=== PATIENT | male | born 1975 | race Caucasian/White ===

== ENCOUNTER 2020-03-06 21:35 | Inpatient (IN) | payer MEDICAID, OTHER ==
[~2020-03-06] VITALS: Ht 182.9 cm; Wt 71.8 kg
--- NOTE | 2020-03-06 21:35 | NUR ---
pt BIB [facility] from [facility]f C/O rash ans wounds to bilat forearms x2 days. pt has been scratching his arms and now has purulent drainage to both arms. per report, pt was very tachycadic [employer] and recieved a fluid bolus en route. pt reports that he was recently treated for a body rash in the [facility] pt A&Ox4. deputy of counter intelligence x2 present and pt in [facility] wrist restraints and leg restraints no resp. distress. denies any recent ill contacts. pt reports that he is in isolation in custody
--- NOTE | 2020-03-06 22:24 | NUR ---
lab at bedside to draw
[2020-03-06] MEDS ORDERED: SODIUM CHLORIDE FLUSH 10ML SYR IVF ONE (23:00)
[2020-03-06] MEDS ORDERED: CLINDAMYCIN PMX 600MG/50ML 50 ML IV ONE (23:00)
[2020-03-06] MEDS ORDERED: LORazepam 2 MG/ML, 1ML IVPush ONE (23:00)
[2020-03-06] MEDS ORDERED: SODIUM CHLORIDE 0.9% 1,000ML IVBOLUS ONE (23:00)
[2020-03-06 23:01] LABS: MEAN CORPUSCULAR HGB CONC 32.7 g/dL (33.2-36.2); MEAN PLATELET VOLUME 7.1 fL (7.4-10.4); PLATELET COUNT 471 x10^3/uL (130-400); RED BLOOD COUNT 2.08 x10^6/uL (4.38-5.82); RED CELL DISTRIBUTION WIDTH 16.5 % (9.4-14.8)
[2020-03-06 23:03] LABS: ALANINE AMINOTRANSFERASE 60 U/L (12-78); ALBUMIN 2.4 g/dL (3.4-5.0); ANION GAP 7 mmol/L (5-15); CALCIUM 8.5 mg/dL (8.5-10.1); CHLORIDE 104 mmol/L (98-107); CREATININE 1.46 mg/dL (0.7-1.3)
[2020-03-06] MEDS ORDERED: PANTOPRAZOLE 80 MG in SODIUM CHLORIDE 0.9% 100 ML IV SCH (23:04)
[2020-03-06 23:06] LABS: ALKALINE PHOSPHATASE 134 U/L (45-117); BILIRUBIN,TOTAL 0.6 mg/dL (0.2-1.0); TOTAL PROTEIN 6.8 g/dL (6.4-8.2)
[2020-03-06 23:27] LABS: BASOPHILS # (AUTO) 0.05 x10^3/uL (0-0.1); BASOPHILS % (AUTO) 0 % (0-1); EOSINOPHILS % (AUTO) 0 % (1-7); LYMPHOCYTES # (AUTO) 1.35 x10^3/uL (1-3.4); LYMPHOCYTES % (AUTO) 9 % (22-44); MD SCAN; MONOCYTES # (AUTO) 1.51 x10^3/uL (0.2-0.8); MONOCYTES % (AUTO) 10 % (2-9); NEUTROPHILS # (AUTO) 12.59 x10^3/uL (1.8-6.8); NEUTROPHILS % (AUTO) 81 % (42-75)
[2020-03-06] MEDS ORDERED: PANTOPRAZOLE 40 MG IV IVPush ONE (23:30)
[2020-03-06] MEDS ORDERED: CLINDAMYCIN PMX 600MG/50ML 50 ML ONE (23:40)
--- NOTE | 2020-03-06 23:42 | NUR ---
THIS TECH ASSISTED WITH RECTAL EXAM
[2020-03-06 23:50] LABS: INTERNATIONAL NORMALIZED RATIO 1.15 (0.93-1.1); PROTHROMBIN TIME 12.2 Seconds (9.6-11.5)
[2020-03-06 23:55] LABS: % IRON SATURATION 8 % (20-55); IRON LEVEL 15 mcg/dL (65-175); TOTAL IRON BINDING CAPACITY 192 mcg/dL (250-450)
[2020-03-07] VITALS (15 sets, daily range): BP systolic 100–130; BP diastolic 56–72
--- NOTE | 2020-03-07 00:05 | NUR ---
pt re-positioned and reminded to hold carms at sides for infusions
--- NOTE | 2020-03-07 00:33 | NUR ---
pt re-positioned by deputies to straighten arms to allow for increased flow of IV fluids and medications
--- NOTE | 2020-03-07 00:33 | NUR ---
tech at bedside for EKG
[2020-03-07] MEDS ORDERED: LORazepam 2 MG/ML, 1ML ONE (01:22)
[2020-03-07] MEDS ORDERED: PANTOPRAZOLE 40 MG IV ONE (01:23)
--- NOTE | 2020-03-07 02:02 | NUR ---
report called to Griselda LARSON
--- NOTE | 2020-03-07 02:10 | NUR ---
late note for 0210: blood consent signed by pt
[2020-03-07] MEDS ORDERED: LACTATED RINGERS 1,000 ML IV SCH (05:30)
[2020-03-07] MEDS ORDERED: OXYcodone IR 5MG TABLET PO PRN (05:30)
[2020-03-07] MEDS ORDERED: TRAZODONE 50MG TABLET PO PRN (05:30)
[2020-03-07] MEDS ORDERED: ONDANSETRON 2MG/ML, 2ML IVPush PRN (05:30)
[2020-03-07] MEDS ORDERED: PANTOPRAZOLE 80 MG in SODIUM CHLORIDE 0.9% 100 ML IV SCH (05:30)
[2020-03-07] MEDS ORDERED: THIAMINE 200 MG in SODIUM CHLORIDE 0.9% 50 ML IV ONE (06:00)
[2020-03-07] MEDS: CLINDAMYCIN PMX 600MG/50ML 50 ML IV SCH ×4 (06:31→23:12)
[2020-03-07 08:48] LABS: CALCIUM 8.8 mg/dL (8.5-10.1); CREATININE 1.25 mg/dL (0.7-1.3)
[2020-03-07 09:10] LABS: ANION GAP 7 mmol/L (5-15); CHLORIDE 112 mmol/L (98-107)
[2020-03-07] MEDS: PANTOPRAZOLE 40 MG IV IVPush SCH ×2 (11:51→23:11)
[2020-03-07] MEDS: IRON SUCROSE COMPLEX 100MG/5ML IV SCH (11:51)
[2020-03-07] MEDS ORDERED: SODIUM CHLORIDE 0.9% 1,000 ML IV SCH (12:00)
[2020-03-07] MEDS ORDERED: QUET100T4 PO (13:19)
[2020-03-07] MEDS ORDERED: ACET325C6 PO (13:19)
[2020-03-07] MEDS ORDERED: QUET400T4 PO (13:19)
[2020-03-07] MEDS ORDERED: CHOL10003 PO (13:19)
[2020-03-07] MEDS ORDERED: OMEP20CA20 PO (13:19)
[2020-03-07] MEDS ORDERED: LITH450T PO (13:19)
[2020-03-07] MEDS: MUPIROCIN OINT 2%, 1 GM APPL. TP SCH ×2 (16:35→21:32)
[2020-03-07] MEDS ORDERED: QUETIAPINE 200 MG TABLET PO SCH (21:00)
[2020-03-07] MEDS: LITHIUM CARBONATE 150 MG CAPSULE PO SCH (21:31)
[2020-03-07] MEDS: ACETAMINOPHEN 325 MG TABLET PO PRN (21:47)
[2020-03-08 00:09] VITALS: BP 96/54
[2020-03-08 04:57] LABS: ANION GAP 7 mmol/L (5-15); CALCIUM 9.6 mg/dL (8.5-10.1); CHLORIDE 113 mmol/L (98-107); CREATININE 1.29 mg/dL (0.7-1.3)
[2020-03-08 05:12] LABS: BASOPHILS # (AUTO) 0.06 x10^3/uL (0-0.1); BASOPHILS % (AUTO) 1 % (0-1); EOSINOPHILS % (AUTO) 0 % (1-7); LYMPHOCYTES # (AUTO) 1.62 x10^3/uL (1-3.4); LYMPHOCYTES % (AUTO) 16 % (22-44); MD NO; MEAN CORPUSCULAR HEMOGLOBIN 29.5 pg (27.5-34.5); MEAN PLATELET VOLUME 7.2 fL (7.4-10.4); MONOCYTES % (AUTO) 13 % (2-9); NEUTROPHILS % (AUTO) 71 % (42-75); PLATELET COUNT 469 x10^3/uL (130-400)
[2020-03-08] MEDS: CLINDAMYCIN PMX 600MG/50ML 50 ML IV SCH (05:19)
[2020-03-08] MEDS: QUETIAPINE 100MG TABLET PO SCH (05:20)
[2020-03-08] MEDS: ACETAMINOPHEN 325 MG TABLET PO PRN ×3 (05:25→16:47)
[2020-03-08] MEDS ORDERED: VANCOMYCIN PER PHARMACY MC PRN (07:30)
[2020-03-08 07:41] VITALS: BP 124/72
[2020-03-08] MEDS ORDERED: PHARMACOKINETIC MONITORING MC PRN (08:00)
[2020-03-08] MEDS ORDERED: VANCOMYCIN 2,000 MG in SODIUM CHLORIDE 0.9% 500 ML IV ONE (08:00)
[2020-03-08] MEDS: CHOLECALCIFEROL 1,000 UNIT TABLET PO SCH (08:45)
[2020-03-08] MEDS: IRON SUCROSE COMPLEX 100MG/5ML IV SCH (08:46)
[2020-03-08] MEDS: MUPIROCIN OINT 2%, 1 GM APPL. TP SCH ×3 (08:46→20:40)
[2020-03-08] MEDS: LITHIUM CARBONATE 150 MG CAPSULE PO SCH ×3 (08:46→20:39)
[2020-03-08] MEDS: PANTOPRAZOLE 40 MG IV IVPush SCH ×2 (12:11→23:42)
[2020-03-08 13:03] VITALS: BP 137/81
[2020-03-08 19:57] VITALS: BP 130/78
[2020-03-08] MEDS: QUETIAPINE 200 MG TABLET PO SCH (20:39)
[2020-03-08] MEDS: VANCOMYCIN 1,600 MG in SODIUM CHLORIDE 0.9% 250 ML IV SCH (20:39)
[2020-03-09] VITALS (8 sets, daily range): BP systolic 80–135; BP diastolic 49–84
[2020-03-09] MEDS: ACETAMINOPHEN 325 MG TABLET PO PRN ×4 (01:45→20:24)
[2020-03-09] MEDS: QUETIAPINE 100MG TABLET PO SCH (05:47)
[2020-03-09] MEDS ORDERED: LACTATED RINGERS 1,000 ML IVBOLUS ONE (07:00)
[2020-03-09 07:40] LABS: FREE T4 (FREE THYROXINE) > 8.00 ng/dL (0.76-1.46)
[2020-03-09 09:03] LABS: MEAN CORPUSCULAR HEMOGLOBIN 29.3 pg (27.5-34.5); MEAN CORPUSCULAR HGB CONC 32.1 g/dL (33.2-36.2); MEAN PLATELET VOLUME 7.3 fL (7.4-10.4); PLATELET COUNT 453 x10^3/uL (130-400); RED BLOOD COUNT 2.77 x10^6/uL (4.38-5.82)
[2020-03-09 09:09] LABS: ALANINE AMINOTRANSFERASE 78 U/L (12-78); ALBUMIN 2.2 g/dL (3.4-5.0); ANION GAP 8 mmol/L (5-15); CALCIUM 8.9 mg/dL (8.5-10.1); CHLORIDE 109 mmol/L (98-107); CREATININE 1.16 mg/dL (0.7-1.3)
[2020-03-09 09:15] LABS: ALKALINE PHOSPHATASE 138 U/L (45-117); BILIRUBIN,TOTAL 1.1 mg/dL (0.2-1.0); TOTAL PROTEIN 6.7 g/dL (6.4-8.2)
[2020-03-09] MEDS: CHOLECALCIFEROL 1,000 UNIT TABLET PO SCH (09:16)
[2020-03-09] MEDS: IRON SUCROSE COMPLEX 100MG/5ML IV SCH (09:16)
[2020-03-09] MEDS: VANCOMYCIN 1,600 MG in SODIUM CHLORIDE 0.9% 250 ML IV SCH ×2 (09:16→20:12)
[2020-03-09] MEDS: MUPIROCIN OINT 2%, 1 GM APPL. TP SCH ×3 (09:22→21:00)
[2020-03-09 09:34] LABS: BASOPHILS # (AUTO) 0.17 x10^3/uL (0-0.1); BASOPHILS % (AUTO) 1 % (0-1); EOSINOPHILS % (AUTO) 0 % (1-7); LYMPHOCYTES # (AUTO) 2.03 x10^3/uL (1-3.4); LYMPHOCYTES % (AUTO) 12 % (22-44); MD SCAN; MONOCYTES # (AUTO) 1.56 x10^3/uL (0.2-0.8); MONOCYTES % (AUTO) 9 % (2-9); NEUTROPHILS # (AUTO) 12.79 x10^3/uL (1.8-6.8); NEUTROPHILS % (AUTO) 77 % (42-75)
[2020-03-09 09:59] LABS: HCT (SEDRATE) 25.2 % (39.2-51.8)
[2020-03-09] MEDS: PANTOPRAZOLE 40 MG IV IVPush SCH (11:47)
[2020-03-09] MEDS: LITHIUM CARBONATE 150 MG CAPSULE PO SCH ×3 (11:47→20:17)
[2020-03-09] MEDS: ENOXAPARIN 40 MG/0.4 ML SQ SCH (13:36)
[2020-03-09] MEDS: ASCORBIC ACID 500 MG TABLET PO SCH ×2 (13:36→20:17)
[2020-03-09] MEDS: CHOLECALCIFEROL 5,000u TAB PO SCH (13:37)
[2020-03-09] MEDS: METOPROLOL TARTRATE 25 MG TAB PO SCH ×2 (13:37→20:18)
[2020-03-09] MEDS: AZITHROMYCIN 500 MG TABLET PO SCH (13:38)
[2020-03-09] MEDS: ZINC SULFATE 220 MG CAPSULE PO SCH (13:38)
[2020-03-09] MEDS: CEFTRIAXONE PMX 1GM/50ML 50 ML IV SCH (13:38)
[2020-03-09] MEDS: THIAMINE 100MG TABLET PO SCH ×2 (13:56→20:17)
[2020-03-09] MEDS: QUETIAPINE 200 MG TABLET PO SCH (20:24)
[2020-03-10 00:15] VITALS: BP 98/60
[2020-03-10] MEDS: PANTOPRAZOLE 40 MG IV IVPush SCH ×3 (00:22→23:59)
[2020-03-10] MEDS ORDERED: LACTATED RINGERS 1,000 ML IVBOLUS ONE (03:00)
[2020-03-10] MEDS ORDERED: METOPROLOL TARTRATE 25 MG TAB PO ONE ×2 (03:05→15:00)
[2020-03-10 06:25] LABS: HCT (SEDRATE) 25.7 % (39.2-51.8)
[2020-03-10 06:30] LABS: CHLORIDE 111 mmol/L (98-107)
[2020-03-10 06:37] LABS: MEAN CORPUSCULAR HGB CONC 32.8 g/dL (33.2-36.2); MEAN PLATELET VOLUME 7.3 fL (7.4-10.4); PLATELET COUNT 410 x10^3/uL (130-400); RED BLOOD COUNT 2.85 x10^6/uL (4.38-5.82)
[2020-03-10] MEDS: QUETIAPINE 100MG TABLET PO SCH (06:39)
[2020-03-10 07:03] LABS: ALANINE AMINOTRANSFERASE 82 U/L (12-78); ALBUMIN 2.2 g/dL (3.4-5.0); ALKALINE PHOSPHATASE 147 U/L (45-117); ANION GAP 8 mmol/L (5-15); CALCIUM 9.4 mg/dL (8.5-10.1); CREATININE 1.26 mg/dL (0.7-1.3); TOTAL PROTEIN 7.1 g/dL (6.4-8.2)
[2020-03-10 07:13] LABS: BASOPHILS # (AUTO) 0.06 x10^3/uL (0-0.1); BASOPHILS % (AUTO) 0 % (0-1); EOSINOPHILS % (AUTO) 0 % (1-7); LYMPHOCYTES # (AUTO) 1.71 x10^3/uL (1-3.4); LYMPHOCYTES % (AUTO) 11 % (22-44); MD SCAN; MONOCYTES # (AUTO) 1.54 x10^3/uL (0.2-0.8); MONOCYTES % (AUTO) 10 % (2-9); NEUTROPHILS # (AUTO) 12.48 x10^3/uL (1.8-6.8); NEUTROPHILS % (AUTO) 79 % (42-75)
[2020-03-10 07:38] VITALS: BP 108/69
[2020-03-10] MEDS: VANCOMYCIN 1,600 MG in SODIUM CHLORIDE 0.9% 250 ML IV SCH ×2 (08:06→20:37)
[2020-03-10] MEDS: ACETAMINOPHEN 325 MG TABLET PO PRN ×2 (08:12→20:37)
[2020-03-10] MEDS ORDERED: METOPROLOL SUCCINATE 25 MG TAB.ER.24H PO SCH (09:00)
[2020-03-10] MEDS: CHOLECALCIFEROL 5,000u TAB PO SCH (09:45)
[2020-03-10] MEDS: THIAMINE 100MG TABLET PO SCH ×2 (09:45→20:37)
[2020-03-10] MEDS: ASCORBIC ACID 500 MG TABLET PO SCH (09:45)
[2020-03-10] MEDS: LITHIUM CARBONATE 150 MG CAPSULE PO SCH ×3 (09:46→20:37)
[2020-03-10] MEDS: ZINC SULFATE 220 MG CAPSULE PO SCH (09:46)
[2020-03-10] MEDS: MUPIROCIN OINT 2%, 1 GM APPL. TP SCH ×3 (09:47→20:38)
[2020-03-10 09:48] VITALS: BP 113/68
[2020-03-10] MEDS: AZITHROMYCIN 500 MG TABLET PO SCH (11:01)
[2020-03-10] MEDS: IRON SUCROSE COMPLEX 100MG/5ML IV SCH (11:01)
[2020-03-10 12:26] VITALS: BP 117/68
[2020-03-10] MEDS: ENOXAPARIN 40 MG/0.4 ML SQ SCH (12:36)
[2020-03-10] MEDS: CEFTRIAXONE PMX 1GM/50ML 50 ML IV SCH (12:36)
[2020-03-10] MEDS: ASCORBATE SODIUM 3,000 MG in SODIUM CHLORIDE 0.9% 250 ML IVPB SCH ×2 (17:25→23:59)
[2020-03-10 19:29] VITALS: BP 147/89
[2020-03-10] MEDS: QUETIAPINE 200 MG TABLET PO SCH (20:37)
[2020-03-10] MEDS: METOPROLOL SUCCINATE 25 MG TAB.ER.24H PO SCH (20:38)
[2020-03-11 00:45] VITALS: BP 108/69
[2020-03-11 01:08] LABS: OCCULT BLOOD NEGATIVE (NEGATIVE)
[2020-03-11] MEDS: QUETIAPINE 100MG TABLET PO SCH (06:14)
[2020-03-11] MEDS: ASCORBATE SODIUM 3,000 MG in SODIUM CHLORIDE 0.9% 250 ML IVPB SCH ×3 (06:14→21:48)
[2020-03-11 06:21] LABS: MEAN CORPUSCULAR HEMOGLOBIN 29.1 pg (27.5-34.5); MEAN CORPUSCULAR HGB CONC 31.5 g/dL (33.2-36.2); MEAN PLATELET VOLUME 7.2 fL (7.4-10.4); PLATELET COUNT 447 x10^3/uL (130-400); RED BLOOD COUNT 2.84 x10^6/uL (4.38-5.82); RED CELL DISTRIBUTION WIDTH 15.7 % (9.4-14.8)
[2020-03-11 06:27] LABS: CALCIUM 9.2 mg/dL (8.5-10.1); CHLORIDE 113 mmol/L (98-107)
[2020-03-11 06:33] LABS: ALBUMIN 2.1 g/dL (3.4-5.0); ANION GAP 8 mmol/L (5-15); CREATININE 0.97 mg/dL (0.7-1.3); VANCOMYCIN,RANDOM 18.3 mcg/mL
[2020-03-11 06:54] LABS: BASOPHILS # (AUTO) 0.15 x10^3/uL (0-0.1); BASOPHILS % (AUTO) 2 % (0-1); EOSINOPHILS % (AUTO) 0 % (1-7); LYMPHOCYTES # (AUTO) 1.71 x10^3/uL (1-3.4); LYMPHOCYTES % (AUTO) 17 % (22-44); MD SCAN; MONOCYTES # (AUTO) 1.26 x10^3/uL (0.2-0.8); MONOCYTES % (AUTO) 12 % (2-9); NEUTROPHILS # (AUTO) 7.06 x10^3/uL (1.8-6.8); NEUTROPHILS % (AUTO) 69 % (42-75)
[2020-03-11] MEDS ORDERED: VANCOMYCIN 1,600 MG in SODIUM CHLORIDE 0.9% 250 ML IV SCH (07:00)
[2020-03-11 07:52] VITALS: BP 144/88
[2020-03-11] MEDS: IRON SUCROSE COMPLEX 100MG/5ML IV SCH (08:21)
[2020-03-11] MEDS: AZITHROMYCIN 500 MG TABLET PO SCH (08:23)
[2020-03-11] MEDS: ZINC SULFATE 220 MG CAPSULE PO SCH (08:23)
[2020-03-11] MEDS: CHOLECALCIFEROL 5,000u TAB PO SCH (08:23)
[2020-03-11] MEDS: METOPROLOL SUCCINATE 25 MG TAB.ER.24H PO SCH ×2 (08:23→20:21)
[2020-03-11] MEDS: MUPIROCIN OINT 2%, 1 GM APPL. TP SCH ×3 (08:24→20:22)
[2020-03-11] MEDS: THIAMINE 100MG TABLET PO SCH ×2 (08:24→20:21)
[2020-03-11] MEDS: LITHIUM CARBONATE 150 MG CAPSULE PO SCH ×3 (10:04→20:20)
[2020-03-11] MEDS: CEFTRIAXONE PMX 1GM/50ML 50 ML IV SCH (12:34)
[2020-03-11] MEDS: ENOXAPARIN 40 MG/0.4 ML SQ SCH (12:34)
[2020-03-11] MEDS: PANTOPRAZOLE 40 MG IV IVPush SCH ×2 (12:34→23:57)
[2020-03-11 13:07] VITALS: BP 138/83
[2020-03-11] MEDS: VANCOMYCIN 1,600 MG in SODIUM CHLORIDE 0.9% 250 ML IV SCH (14:13)
[2020-03-11 18:50] VITALS: BP 124/79
[2020-03-11] MEDS: ACETAMINOPHEN 325 MG TABLET PO PRN (18:51)
[2020-03-11] MEDS: QUETIAPINE 200 MG TABLET PO SCH (20:21)
[2020-03-12 01:00] VITALS: BP 130/76
[2020-03-12] MEDS: ASCORBATE SODIUM 3,000 MG in SODIUM CHLORIDE 0.9% 250 ML IVPB SCH ×2 (03:41→10:00)
[2020-03-12] MEDS: QUETIAPINE 100MG TABLET PO SCH (05:47)
[2020-03-12 08:34] VITALS: BP 136/87
[2020-03-12] MEDS: VANCOMYCIN 1,600 MG in SODIUM CHLORIDE 0.9% 250 ML IV SCH (09:05)
[2020-03-12] MEDS: IRON SUCROSE COMPLEX 100MG/5ML IV SCH (09:05)
[2020-03-12] MEDS: AZITHROMYCIN 500 MG TABLET PO SCH (09:06)
[2020-03-12] MEDS: CHOLECALCIFEROL 5,000u TAB PO SCH (09:06)
[2020-03-12] MEDS: METOPROLOL SUCCINATE 25 MG TAB.ER.24H PO SCH (09:06)
[2020-03-12] MEDS: LITHIUM CARBONATE 150 MG CAPSULE PO SCH (09:07)
[2020-03-12] MEDS: MUPIROCIN OINT 2%, 1 GM APPL. TP SCH (09:07)
[2020-03-12] MEDS: THIAMINE 100MG TABLET PO SCH (09:07)
[2020-03-12] MEDS: ZINC SULFATE 220 MG CAPSULE PO SCH (09:07)
[2020-03-12] MEDS ORDERED: ZINC220C7 PO (09:51)
[2020-03-12] MEDS ORDERED: CEFD300C37 PO (09:51)
[2020-03-12] MEDS ORDERED: METH10TA6 PO (09:51)
[2020-03-12] MEDS ORDERED: CHOL500045 PO (09:51)
[2020-03-12] MEDS ORDERED: METO25TA91 PO (09:51)
[2020-03-12] MEDS ORDERED: AMOX1TAB64 PO (09:51)
[2020-03-12] MEDS: PANTOPRAZOLE 40 MG IV IVPush SCH (12:00)
== END 2020-03-12 12:20 | DRG 871 ==
LOC: ED 22:16 → EDIP 23:47 → 3N 03-07 02:22 → 4NE 03-09 06:22
PROVIDERS: ADMIT Family Medicine; ATTEND Family Medicine
PROC: 30233N1 Transfusion of Nonautologous Red Blood Cells into Peripheral Vein, Percutaneous Approach (ICD-10-PCS; principal; 2020-03-07)
DX: A41.9 Sepsis, unspecified organism (principal); N17.0 Acute kidney failure with tubular necrosis; J96.01 Acute respiratory failure with hypoxia; J18.9 Pneumonia, unspecified organism; L03.114 Cellulitis of left upper limb; L03.113 Cellulitis of right upper limb; E87.1 Hypo-osmolality and hyponatremia; E44.0 Moderate protein-calorie malnutrition; D62 Acute posthemorrhagic anemia; E87.2 Acidosis; F32.9 Major depressive disorder, single episode, unspecified; F41.9 Anxiety disorder, unspecified; F17.210 Nicotine dependence, cigarettes, uncomplicated; R00.0 Tachycardia, unspecified; D63.8 Anemia in other chronic diseases classified elsewhere; K21.9 Gastro-esophageal reflux disease without esophagitis; F11.10 Opioid abuse, uncomplicated; F10.10 Alcohol abuse, uncomplicated; Z68.21 Body mass index [BMI] 21.0-21.9, adult; E05.90 Thyrotoxicosis, unspecified without thyrotoxic crisis or storm; E86.0 Dehydration; Z20.828 Contact with and (suspected) exposure to other viral communicable diseases; L01.01 Non-bullous impetigo; Z90.49 Acquired absence of other specified parts of digestive tract; Z88.0 Allergy status to penicillin
CPT/HCPCS: 36415; 36430; 71045; 71275; 76536; 80048; 80053; 80069; 80202; 82272; 82550; 82728; 83540; 83550; 83605; 83615; 83735; 84145; 84439; 84443; 84445; 84481; 85014; 85018; 85025; 85379; 85610; 85651; 85730; 86140; 86376; 86850; 86900; 86923; 87040; 87635; 93005; 93306; 96365; 99291; G0378; J0696; J1650; J1756; J3370; J3411; C9113; J2060; J7030; J7040; J7050; J7120; P9016